=== PATIENT | female | born 1995 | race African-American/Black ===

== ENCOUNTER 2017-03-26 07:23 | Day surgery (SDC) | payer MEDICAID ==
[~2017-03-26] VITALS: Ht 149.9 cm; Wt 68.9 kg
[2017-03-26 07:46] VITALS: BP 120/77
[2017-03-26 12:12] VITALS: BP 117/81
== END 2017-03-26 11:15 | disposition home or self-care (01) ==
LOC: GI 07:23
PROVIDERS: Internal Medicine Gastroenterology
PROC: 0DJD8ZZ Inspection of Lower Intestinal Tract, Via Natural or Artificial Opening Endoscopic (ICD-10-PCS; principal; 2017-03-26 08:30)
DX: Z12.11 Encounter for screening for malignant neoplasm of colon (principal); K64.8 Other hemorrhoids; K59.00 Constipation, unspecified; F41.9 Anxiety disorder, unspecified; L30.9 Dermatitis, unspecified; Z68.29 Body mass index [BMI] 29.0-29.9, adult; Z80.0 Family history of malignant neoplasm of digestive organs
CPT/HCPCS: 45378; J1200; J1610; J2250; J2310; J3010; J3490